=== PATIENT | male | born 1950 | race Hispanic/Latino ===

== ENCOUNTER 2024-03-01 23:28 | Emergency (ER) | payer SELFPAY ==
[2024-03-02] MEDS ORDERED: Bacitracin 1 PK ONE (00:03)
== END 2024-03-02 00:20 ==
LOC: ERS 23:28
DX: S61.511A Laceration without foreign body of right wrist, initial encounter (principal); W26.8XXA Contact with other sharp object(s), not elsewhere classified, initial encounter; Y93.89 Activity, other specified; Y92.59 Other trade areas as the place of occurrence of the external cause
CPT/HCPCS: 99283